=== PATIENT | female | born 1995 | race Caucasian/White ===

== ENCOUNTER 2021-01-22 14:00 | Outpatient (CLI) | payer BC, SELFPAY ==
--- NOTE | 2021-01-22 14:08 | US_ITS ---
WS: [id number] INDICATION: Mass lower right leg TECHNIQUE: ULTRASOUND SOFT TISSUE RIGHT LOWER LEG FINDINGS: Ultrasound soft tissue in the area of palpable concern anterior lower right leg. No evidenc e of underlying cystic or solid lesion. Normal underlying subcutaneous soft tissues. Normal underlyin g superficial vessels. US/US soft tissue/extremity [id number] IMPRESSION: Normal soft tissue ultrasound
== END 2021-01-22 14:01 | disposition home or self-care (01) ==
LOC: RAD 14:04
PROVIDERS: PCP Registered Nurse; Visit Provider Registered Nurse
DX: R22.41 Localized swelling, mass and lump, right lower limb (principal)
CPT/HCPCS: 76882